=== PATIENT | female | born 1995 | race Caucasian/White ===

== ENCOUNTER 2024-11-12 09:02 | Emergency (ER) | payer SELFPAY | END 2024-11-12 10:25 | disposition home or self-care (01) | LOC: JD.ED 09:02 | DX: S93.402A Sprain of unspecified ligament of left ankle, initial encounter (principal); W01.198A Fall on same level from slipping, tripping and stumbling with subsequent striking against other object, initial encounter | CPT/HCPCS: 73610-26-LT; 73610-LT; 99283 ==